=== PATIENT | female | born 1970 | race American Indian/Alaskan Native ===

== ENCOUNTER 2018-07-06 21:37 | Emergency (ER) | payer OTHER ==
[2018-07-06 22:32] LABS: Basophils % (Auto) 0.3 % (0.0-1.8); Eosinophils % (Auto) 0.7 % (0.0-4.3); Hematocrit 34.1 % (30.3-42.9); Hemoglobin 11.2 gm/dl (10.1-14.3); Lymphocytes % (Auto) 14.3 % (13.4-35.0); Mean Corpuscular HGB Conc 33 % (30-34); Mean Corpuscular Volume 87 fl (79-97); Monocytes # (Auto) 0.2 K/mm3 (0.0-0.8); Monocytes % (Auto) 2.9 % (0.0-7.3); Platelet Count 167 K/mm3 (140-440); Red Blood Count 3.93 M/mm3 (3.65-5.03); Red Cell Distribution Width 14.2 % (13.2-15.2)
[2018-07-06 23:08] LABS: Alanine Aminotransferase 116 units/L (7-56); Albumin 4.5 g/dL (3.9-5); BUN/Creatinine Ratio 14; Blood Urea Nitrogen 13 mg/dL (7-17); Calcium 9.7 mg/dL (8.4-10.2); Hemolysis Index 6
[2018-07-07] MEDS ORDERED: TORADOL IV ONE (01:11)
[2018-07-07] MEDS ORDERED: NACL 0.9% 1000 ML 1,000 ML IV ONE (01:11)
--- NOTE | 2018-07-07 01:15 | Emergency Department Report ---
ED Abdominal Pain HPI - General Chief Complaint: Abdominal Pain Stated Complaint: RT UPPER EVADRANT PAIN Time Seen by Provider: 07/07/18 00:45 Source: EMS Mode of arrival: Ambulatory Limitations: No Limitations - History of Present Illness Initial Comments: 27-year-old female presents to ED with right flank pain after eating [place] fried chicken today. Patient denies nausea, vomiting, fever, loss of appetite, hematuria, dysuria, vaginal bleeding, vaginal discharge. Patient states she took medication for gas, but that did not help. States pain is somewhat improved from when she arrived earlier. MD Complaint: abdominal pain Location: R flank Radiation: none Migration to: no migration Severity: severe Severity scale (0 -10): 10 Quality: cramping Consistency: constant Improves With: nothing Worsens With: eating Associated Symptoms: denies: nausea, vomiting, diarrhea, fever, dysuria, hematuria - Related Data Previous Rx's Medication Instructions Recorded Last Taken Type Dicyclomine [Bentyl] 20 mg PO QID PRN #20 tablet 07/07/18 Unknown Rx Allergies Allergy/AdvReac Type Severity Reaction Status Date / Time No Known Allergies Allergy Unverified 07/06/18 21:48 ED Review of Systems ROS: Stated complaint: RT UPPER EVADRANT PAIN Other details as noted in HPI Comment: All other systems reviewed and negative Constitutional: denies: chills, fever Gastrointestinal: abdominal pain. denies: nausea, vomiting, diarrhea, constipation Genitourinary: denies: dysuria, frequency, hematuria, discharge ED Past Medical Hx - Past Medical History Previous Medical History?: No - Surgical History Past Surgical History?: No - Social History Smoking Status: Never Smoker Substance Use Type: None - Medications Home Medications: Home Medications Medication Instructions Recorded Confirmed Last Taken Type Dicyclomine [Bentyl] 20 mg PO QID PRN #20 tablet 07/07/18 Unknown Rx ED Physical Exam - General Limitations: No Limitations General appearance: alert, in no apparent distress - Head Head exam: Present: atraumatic, normocephalic - Eye Eye exam: Present: normal appearance - ENT ENT exam: Present: mucous membranes moist - Neck Neck exam: Present: normal inspection - Respiratory Respiratory exam: Present: normal lung sounds bilaterally. Absent: respiratory distress - Cardiovascular Cardiovascular Exam: Present: regular rate, normal rhythm - GI/Abdominal GI/Abdominal exam: Present: soft, tenderness (mild RUQ and RLQ tenderness). Absent: distended - Extremities Exam Extremities exam: Present: normal inspection - Neurological Exam Neurological exam: Present: alert, oriented X3 - Psychiatric Psychiatric exam: Present: normal affect, normal mood - Skin Skin exam: Present: warm, dry, intact, normal color ED Course Vital Signs 07/06/18 07/07/18 07/07/18 21:43 01:13 03:42 Temperature 98.0 F 98.4 F Pulse Rate 94 H 83 78 Respiratory 20 16 16 Rate Blood Pressure 131/77 Blood Pressure 140/77 132/74 [Left] O2 Sat by Pulse 100 99 100 Oximetry ED Medical Decision Making - Lab Data Result diagrams: 07/06/18 22:07 07/06/18 22:07 - Radiology Data Radiology results: report reviewed, image reviewed - Medical Decision Making 37-year-old female with right-sided flank pain after eating. Patient denied nausea, vomiting, diarrhea, fever. Vitals normal. Labwork done, wbc's normal, however LFTs elevated. She denies history of having allergy elevation in the past. Ultrasound showed no right upper quadrant abnormalities, liver and gallbladder normal, with no evidence of gallstones. I suggested that we obtain CT abdomen and pelvis to rule out appendicitis or kidney stone, however low suspicion for appendicitis as patient is afebrile and has normal wbc's. PATIENT REFUSED CT due to claustrophobia. Both patient we could give her medications to help her relax, however patient still refused stating she has had CT scans in the past and multiple different medications, however she had a "bad experience" and no medications help her. Patient reports resolution of her pain at this time. Patient given strict return precautions including return of her pain, development of fever, development of vomiting. I will be given a prescription for Bentyl. Outpatient follow-up advised for further evaluation of elevated LFTs. - Differential Diagnosis gallstones, kidney stones, appendicitis Critical care attestation.: If time is entered above; I have spent that time in minutes in the direct care of this critically ill patient, excluding procedure time. ED Disposition Clinical Impression: Abdominal pain, Elevated liver enzymes Disposition: -01 TO HOME OR SELFCARE Is pt being admited?: No Condition: Stable Instructions: Abdominal Pain (ED) Prescriptions: Dicyclomine [Bentyl] 20 mg PO QID PRN #20 tablet PRN Reason: abdominal pain Referrals: JAIRON PEREZ MD [Primary Care Provider] - 3-5 Days [facility] [Provider Group] - 3-5 Days [facility] [Provider Group] - 3-5 Days Time of Disposition: 02:50
--- NOTE | 2018-07-07 02:11 | Ultrasound Report ---
FINAL REPORT PROCEDURE: US ABDOMEN LIMITED TECHNIQUE: Real-time sonography in multiple planes of the gallbladder fossa and CBD with imaging of the adjacent liver, pancreas, and right kidney was performed with image documentation. CPT 45817 HISTORY: RUQ pain COMPARISON: No prior studies are available for comparison. FINDINGS: Liver: Normal size and echotexture with no evidence of cystic or solid mass lesion. Gallbladder: Fluid filled. No gallstones, wall thickening, pericholecystic fluid. Patient reports pos itive sonographic Correia sign.. Intrahepatic bile ducts: Normal . Extrahepatic bile ducts: Normal . Pancreas: Normal as visualized with suboptimal depiction of the pancreatic tail. Right kidney: Normal echotexture. No focal renal mass, calculus, or hydronephrosis. Other: No free fluid. IMPRESSION: There is no cholelithiasis, cholecystitis or biliary ductal dilatation.
[2018-07-07 03:44] VITALS: BP 132/74
== END 2018-07-07 03:42 | disposition home or self-care (01) ==
LOC: ED 21:37
DX: R10.9 Unspecified abdominal pain (principal); R94.5 Abnormal results of liver function studies
CPT/HCPCS: 36415; 76705; 80053; 83690; 85025; 96374; 99284; J1885; J7030